=== PATIENT | female | born 1960 | race Two or more races ===

== ENCOUNTER 2019-09-18 12:01 | Emergency (ER) | payer OTHER ==
[~2019-09-18] VITALS: Ht 167.6 cm; Wt 84.0 kg
[2019-09-18 12:32] LABS: BASOPHILS # (AUTO) 0.04 x10^3/uL (0-0.1); BASOPHILS % (AUTO) 1 % (0-1); EOSINOPHILS # (AUTO) 0.17 x10^3/uL (0-0.4); EOSINOPHILS % (AUTO) 3 % (1-7); LYMPHOCYTES # (AUTO) 2.19 x10^3/uL (1-3.4); LYMPHOCYTES % (AUTO) 37 % (22-44); MD NO; MEAN CORPUSCULAR HGB CONC 33.5 g/dL (32.4-35.8); MEAN CORPUSCULAR VOLUME 89.3 fL (80-100); MEAN PLATELET VOLUME 8.7 fL (7.4-10.4); MONOCYTES # (AUTO) 0.44 x10^3/uL (0.2-0.8); MONOCYTES % (AUTO) 7 % (2-9); NEUTROPHILS # (AUTO) 3.07 x10^3/uL (1.8-6.8); NEUTROPHILS % (AUTO) 52 % (42-75); PLATELET COUNT 202 x10^3/uL (130-400); RED BLOOD COUNT 5.38 x10^6/uL (3.82-5.3); RED CELL DISTRIBUTION WIDTH 12.7 % (9.6-15.2)
[2019-09-18 12:41] LABS: ALBUMIN 4.3 g/dL (3.4-5.0); ANION GAP 6 mmol/L (5-15); CALCIUM 9.1 mg/dL (8.5-10.1); CHLORIDE 106 mmol/L (98-107); CREATININE 0.97 mg/dL (0.55-1.02)
[2019-09-18] MEDS ORDERED: NEOSPORIN OINT. PKT 1 PACKET ONE (12:55)
[2019-09-18 13:22] VITALS: BP 144/95
--- NOTE | 2019-09-18 13:33 | NUR ---
TASK RN: PT RESTING ON GURNEY. NADN. ROLLINS.
== END 2019-09-18 13:42 | disposition home or self-care (01) ==
LOC: ED 13:30
DX: E11.65 Type 2 diabetes mellitus with hyperglycemia (principal); L89.521 Pressure ulcer of left ankle, stage 1; H53.9 Unspecified visual disturbance; R42 Dizziness and giddiness
CPT/HCPCS: 36415; 80048; 82040; 82962; 85025; 99283